=== PATIENT | female | born 1995 | race African-American/Black ===

== ENCOUNTER 2021-03-08 14:07 | Emergency (ER) | payer MEDICAID ==
[~2021-03-08] VITALS: Ht 157.5 cm; Wt 51.3 kg
[2021-03-08] MEDS ORDERED: KETOROLAC 15MG/ML VIAL IV ONE (18:00)
[2021-03-08] MEDS ORDERED: SODIUM CHLORIDE 0.9% 1,000 ML IV ONE (18:00)
[2021-03-08] MEDS ORDERED: ACETAMINOPHEN WITH CODEINE 120-12MG/5ML UDC PO ONE (18:15)
[2021-03-08 19:29] LABS: BASOPHILS % 0.2 % (0.0-2.0); HEMATOCRIT. 41.8 % (36.0-48.0); HEMOGLOBIN. 13.9 g/dL (12.0-16.0); MEAN CORPUSCULAR HEMOGLOBIN 28.7 pg (28.0-32.0); MEAN CORPUSCULAR VOLUME 86.1 fL (81.0-99.0); MEAN PLATELET VOLUME 9.4 fl (7.4-10.4); MONOCYTES % 13.4 % (2.0-8.0); NEUTROPHILS % 65.4 % (40.0-76.0); PLATELET 151 x1000/uL (130-400); RED BLOOD CELL COUNT 4.86 mill/uL (4.2-5.4)
[2021-03-08 19:33] LABS: CHLORIDE 101 mEq/L (98-107)
[2021-03-08] MEDS ORDERED: ONDANSETRON 4MG ODT PO ONE (19:45)
[2021-03-08] MEDS ORDERED: POTASSIUM CHLORIDE 20MEQ/PACKET PO ONE (19:45)
[2021-03-08] MEDS ORDERED: POTASSIUM CHLORIDE 20MEQ TABLET SR PO SCH (20:15)
[2021-03-08 20:25] VITALS: BP 125/85
== END 2021-03-08 20:29 | disposition home or self-care (01) ==
LOC: ER 14:07
DX: U07.1 COVID-19 (principal); J06.9 Acute upper respiratory infection, unspecified; M94.0 Chondrocostal junction syndrome [Tietze]
CPT/HCPCS: 36415; 71045; 80053; 83880; 84484; 85025; 93005; 96361; 96374; 99285; J1885; J7030; Q0162; Z7610